=== PATIENT | male | born 1950 ===

== ENCOUNTER 2020-08-11 13:28 | Emergency (ER) | payer MEDICARE, OTHER ==
[~2020-08-11] VITALS: Ht 182.9 cm; Wt 88.0 kg
--- NOTE | 2020-08-11 13:48 | NUR ---
Patient discharged to home in stable condition. Written and verbal after care instructions given. Patient verbalizes understanding of instructions. Stressed follow up or return to ER for worsening s/s.
== END 2020-08-11 13:51 | disposition home or self-care (01) ==
LOC: ER 13:31
DX: T16.1XXA Foreign body in right ear, initial encounter (principal); X58.XXXA Exposure to other specified factors, initial encounter; Y93.E8 Activity, other personal hygiene; Y92.89 Other specified places as the place of occurrence of the external cause
CPT/HCPCS: A4663